=== PATIENT | female | born 1960 | race Caucasian/White ===

== ENCOUNTER 2016-12-16 07:20 | Emergency (ER) | payer BC, OTHER ==
[~2016-12-16] VITALS: Ht 165.1 cm; Wt 80.2 kg
[~2016-12-16 07:20] MED LIST changes: -IBUP200T80 PO; -LEVO75TA PO; -LOSA1TAB PO
[2016-12-16 07:29] VITALS: TEMP 36.3; Ht 165.1 cm; Wt 80.2 kg
[2016-12-16] MEDS ORDERED: OXYCODONE HCL IR 5 MG TAB (IMMEDIATE RELEASE) PO STA (07:42)
[2016-12-16] MEDS ORDERED: AMOXICILLIN/CLAVULANATE TAB 875 MG TAB PO ONE (07:45)
[2016-12-16] MEDS ORDERED: DIPHTHERIA/TETANUS/PERTUSSIS 0.5 ML SYR/VIAL IM. ONE (07:45)
--- NOTE | 2016-12-16 08:42 | DIAGNOSTIC IMAGING REPORT ---
LEFT HAND 3 VIEWS CLINICAL HISTORY: Dog bite injury. FINDINGS: 3 views of left hand are obtained. No prior studies are available for comparison at the time of dictation. The skeletal structures are osteopenic. There is a distracted results oriented fracture through the midshaft of the fourth metacarpal. There is apex lateral angulation as well as mild overriding of the fragments by at least 4 mm. There is significant overlying soft tissue edema. Foci of subcutaneous gas suggests laceration. There is questionable cortical irregularity involving the base of the the fifth metacarpal. Nondistracted fracture is not excluded. Mild arthritic change is present in the interphalangeal joints, the first metacarpophalangeal joint, and the first carpometacarpal articulation. A ring is noted on the fourth digit. No radiodense foreign body is identified. IMPRESSION: 1. Soft tissue injury with numerous foci subcutaneous gas suggesting laceration. 2. There is a distracted, overriding, and minimally dilated fracture through the midshaft of the fourth metacarpal as above. 3. Question nondistracted fracture at the base of the fifth metacarpal. Correlate for point tenderness at this site. 4. Osteopenia and arthritic change as above. Electronically signed by: Terrell Bach M.D. 12/16/2016 8:40 AM Dictated Date/Time: 12/16/2016 8:37 AM
[2016-12-16] MEDS ORDERED: LEVO75TA PO (09:22)
[2016-12-16] MEDS ORDERED: LOSA1TAB PO (09:22)
[2016-12-16] MEDS ORDERED: IBUP200T80 PO (09:24)
[2016-12-16 10:00] VITALS: BP 112/61; PULSE 64; O2SAT 99
--- NOTE | 2016-12-16 14:27 | EMERGENCY ROOM VISIT NOTE ---
History First contact with patient: 07:35 Chief Complaint: BITE Stated Complaint: DOG BITE History of Present Illness The patient is a 56 year old female who presents to the Emergency Room with complaints of a dog bite to her left hand. The patient reports that she was attempting to separate her dogs that were fighting and was bitten by her pitbull. She reports multiple lacerations to the hand. She cannot move the fourth and fifth fingers. She denies any paresthesias or numbness. Patient is uncertain of her last tetanus immunization. She does report a prior history of hand cellulitis from a dog bite because she did not take antibiotics as prescribed. Patient is [id number]. She rates her discomfort an 8 out of 10. Review of Systems 10 system review was performed and was negative except for pertinent positives and negatives as indicated in history of present illness Past Medical/Surgical History Medical Problems: (1) Diverticulosis Colon (W/O Ment Of Hemorrhage) (2) Esophageal Reflux (3) Essential (Primary) Hypertension (4) History Of Tobacco Use (5) Hypercholesterolemia (6) Hypothyroidism, Unspecified (7) Int Hemorrhoid W/O Compl (8) Osteoarthros Nos-L/Leg (9) Ulcerative Proctitis Surgical Problems: (1) History of dilatation and curettage (2) History of foot surgery (3) History of hand surgery Family History FH: cancer FH: heart disease FH: hypertension FH: lung disease Social History Smoking Status: Former Smoker Alcohol Use: occasionally Marital Status: Occupation Status: employed Current/Historical Medications Scheduled Citalopram Hydrobromide (Celexa), 30 MG PO PM Estradiol (Estradiol), 0.25 MG PO DAILY Fish Oil ([place]-3), 1 CAP PO BID Glucosamine Sulfate (Glucosamine), 2,000 MG PO DAILY Levothyroxine Sodium (Synthroid), 75 MCG PO DAILY Losartan Potassium (Cozaar), 0.5 TAB PO DAILY Medroxyprogesterone Acetate (Provera), 1.25 MG PO DAILY Multivitamins/Minerals (Mvi With Minerals), 1 TAB PO DAILY Pravastatin Sodium (Pravastatin Sodium), 1 TAB PO HS Zolpidem Tartrate (Ambien), 10 MG PO HS Scheduled PRN Ibuprofen (Ibu-200), 2 TAB PO TID PRN for Pain Allergies Coded Allergies: No Known Allergies (Unverified , 12/16/16) Physical Exam Vital Signs Date Time Temp Pulse Resp B/P Pulse Ox O2 Delivery O2 Flow Rate FiO2 12/16/16 10:00 64 20 112/61 99 12/16/16 09:20 64 20 99 Room Air 12/16/16 07:29 36.3 48 18 109/56 99 Room Air Physical Exam CONSTITUTIONAL: Healthy and well nourished. Alert and oriented X 3 with positive affect. Patient appears in mild discomfort. HEENT: Normocephalic, atraumatic. Pupils equal, round and reactive. NECK: Full active range of motion without discomfort. RESPIRATORY: Clear to auscultation bilaterally with no wheezing, crackles, rhonchi or stridor. CARDIOVASCULAR: Regular rate and rhythm with no murmurs, rubs or gallops. MUSCULOSKELETAL: Examination of the left hand shows multiple puncture wounds over the dorsum of the hand, along along the hypothenar eminence. The patient reports significant discomfort with any flexion or extension of the fourth or fifth fingers. No active bleeding noted. Capillary refill is less than 2 seconds. No tenderness to palpation through the wrist. INTEGUMENTARY: No rash or other significant dermatologic conditions noted. NEUROLOGIC: No focal neurologic deficits noted. Left hand and fingers are sensory intact. Medical Decision & Procedures ER Provider Diagnostic Interpretation: My interpretation of left hand x-rays shows a fourth metacarpal fracture that is distracted and overriding. There is also a questionable vertical fracture at the base of the fifth metacarpal. Radiologist report is as follows: LEFT HAND 3 VIEWS CLINICAL HISTORY: Dog bite injury. FINDINGS: 3 views of left hand are obtained. No prior studies are available for comparison at the time of dictation. The skeletal structures are osteopenic. There is a distracted results oriented fracture through the midshaft of the fourth metacarpal. There is apex lateral angulation as well as mild overriding of the fragments by at least 4 mm. There is significant overlying soft tissue edema. Foci of subcutaneous gas suggests laceration. There is questionable cortical irregularity involving the base of the the fifth metacarpal. Nondistracted fracture is not excluded. Mild arthritic change is present in the interphalangeal joints, the first metacarpophalangeal joint, and the first carpometacarpal articulation. A ring is noted on the fourth digit. No radiodense foreign body is identified. IMPRESSION: 1. Soft tissue injury with numerous foci subcutaneous gas suggesting laceration. 2. There is a distracted, overriding, and minimally dilated fracture through the midshaft of the fourth metacarpal as above. 3. Question nondistracted fracture at the base of the fifth metacarpal. Correlate for point tenderness at this site. 4. Osteopenia and arthritic change as above. Medications Administered Medications (Trade) Dose Ordered Sig/Shima Route Start Time Stop Time Status Last Admin Dose Admin Diphtheria/ Pertussis/Tetanus Vacc (Adacel Inj) 0.5 ml ONCE ONCE IM. 12/16/16 07:45 12/16/16 07:46 DC 12/16/16 08:07 0.5 ML Oxycodone HCl (Roxicodone Immediate Rel Tab) 5 mg NOW STAT PO 12/16/16 07:42 12/16/16 07:45 DC 12/16/16 08:05 5 MG Amoxicillin/ Clavulanate Potassium (Augmentin Tab) 875 mg ONE ONCE PO 12/16/16 07:45 12/16/16 07:46 DC 12/16/16 08:05 875 MG ED Course Patient history and physical exam were performed. Nurse's notes were reviewed. Vital signs were reviewed and were normal. The patient had her wedding ring on the fourth finger. This was successfully removed without cutting the metal. The patient was administered Adacel, Augmentin 875 mg and OxyIR 5 mg for pain. Review of x-rays shows a fourth metacarpal fracture that is distracted and shortened. The case was then further discussed with Terry Pruett PA-C with [facility]. He did contact their office to speak with Dr. Posadas, hand surgeon. Dr. Posadas is out of town this weekend. Angelina, his physician assistant men's soccer coach, requested that we splint the hand, and sent her directly to their office for further reevaluation. A volar Ortho-Glass splint with a hand in position of function was applied. Neurovascular check after splint placement was normal. The patient was happy with plan of care, and rated her pain a 3 out of 10 at the time of discharge. Medical Decision Impression Primary Impression: Open fracture of fourth metacarpal bone of left hand Additional Impression: Dog bite of left hand Departure Information Referrals Bart Gooden M.D. (PCP) Patient Instructions My [facility] Problem Qualifiers Primary Impression: Open fracture of fourth metacarpal bone of left hand Encounter type: initial encounter Metacarpal location: shaft Fracture alignment: displaced Qualified Codes: S62.325B - Displaced fracture of shaft of fourth metacarpal bone, left hand, initial encounter for open fracture Additional Impression: Dog bite of left hand Encounter type: initial encounter Qualified Codes: S61.452A - Open bite of left hand, initial encounter; W54.0XXA - Bitten by dog, initial encounter
== END 2016-12-16 10:00 | disposition home or self-care (01) ==
LOC: C.EDB 07:21 → C.EDA 10:00
DX: S62.325B Displaced fracture of shaft of fourth metacarpal bone, left hand, initial encounter for open fracture (principal); S61.452A Open bite of left hand, initial encounter; W54.0XXA Bitten by dog, initial encounter; Y92.009 Unspecified place in unspecified non-institutional (private) residence as the place of occurrence of the external cause; K57.30 Diverticulosis of large intestine without perforation or abscess without bleeding; K21.9 Gastro-esophageal reflux disease without esophagitis; I10 Essential (primary) hypertension; E03.9 Hypothyroidism, unspecified; E78.00 Pure hypercholesterolemia, unspecified; M19.90 Unspecified osteoarthritis, unspecified site; K51.20 Ulcerative (chronic) proctitis without complications; Z87.891 Personal history of nicotine dependence; Z79.899 Other long term (current) drug therapy

== ENCOUNTER → 2016-12-16 | Outpatient (CLI) | payer BC ==
[~2016-12-16] MED LIST: CITA20TA9 PO; ESTR0.5T3 PO; GLUC10007 PO; IBUP-103 PO; IBUP200T80 PO; LEVO75TA PO; LOSA1TAB PO; MEDR2.5T5 PO; MULT-513 PO; OMEG10007 PO; PRAV40TA2 PO; ZOLP10TA PO
== END | disposition home or self-care (01) ==
LOC: C.CPL 14:55
PROVIDERS: ATTEND Orthopaedic Surgery
DX: Z01.810 Encounter for preprocedural cardiovascular examination (principal)

== ENCOUNTER → 2016-12-27 | Outpatient (CLI) | payer BC ==
[~2016-12-27] MED LIST changes: -IBUP-103 PO; +IBUP200T80 PO; +LEVO75TA PO; +LOSA1TAB PO
== END | disposition home or self-care (01) ==
LOC: C.LAB 12:00
PROVIDERS: ATTEND Internal Medicine
DX: R19.7 Diarrhea, unspecified (principal)

== ENCOUNTER → 2017-10-17 | Outpatient (CLI) | payer BC ==
[2017-10-17 10:46] LABS: ALT/SGPT 28 U/L (12-78); BLOOD UREA NITROGEN 18 mg/dl (7-18); BUN/CREATININE RATIO 29.8 (10-20); CALCIUM 8.9 mg/dl (8.5-10.1); CARBON DIOXIDE 32 mmol/L (21-32); CHLORIDE 104 mmol/L (98-107); CHOLESTEROL 173 mg/dl (0-200); CREATININE 0.59 mg/dl (0.60-1.20); GLUCOSE 80 mg/dl (70-99); POTASSIUM 3.5 mmol/L (3.5-5.1); SODIUM 141 mmol/L (136-145); TRIGLYCERIDES 134 mg/dl (0-150); VERY LOW DENSITY LIPOPROT CALC 27 mg/dl
[2017-10-17 10:56] LABS: ALB/GLOB RATIO 1.2 (0.9-2); ALKALINE PHOSPHATASE 80 U/L (45-117); AST/SGOT 17 U/L (15-37); CHOLESTEROL/HDL RATIO 3.3; HDL CHOLESTEROL 52 mg/dl; LDL CHOLESTEROL CALCULATED 94 mg/dl; THYROID STIMULATING HORMONE 0.403 uIu/ml (0.300-4.500)
== END | disposition home or self-care (01) ==
LOC: C.LAB 09:05
PROVIDERS: ATTEND Physician Assistant Medical
DX: E78.00 Pure hypercholesterolemia, unspecified (principal); E03.9 Hypothyroidism, unspecified